=== PATIENT | male | born 1985 | race Caucasian/White ===

== ENCOUNTER 2025-01-08 19:36 | Emergency (ER) | payer SELFPAY ==
[2025-01-08 19:37] VITALS: BP 183/112; PULSE 88; RESP 20; O2SAT 98
[2025-01-08 19:38] VITALS: BP 192/110; PULSE 98; RESP 20; TEMP 36.6; O2SAT 98; BMI 39.7
--- NOTE | 2025-01-08 21:31 | EX.ED.DYSGE1 ---
HPI History of Present Illness Chief Complaint: Dizziness [facility] Medical History (Updated 01/08/25 @ 22:59 by Alexa Harvey) Diabetes mellitus, type II Home Medications ?Medication ?Instructions ?Recorded ?Last Taken ?Type amlodipine 5 mg tablet (Norvasc) 5 mg PO DAILY #30 tabs 01/08/25 Unknown Rx Allergy/AdvReac Type Severity Reaction Status Date / Time amoxicillin Allergy Hives Verified 01/08/25 19:37 Social History Smoking Status: Former smoker EXAM Physical Exam Const Vital Signs: 01/08/25 19:37 01/08/25 19:38 01/08/25 22:04 Temperature 97.9 F Temperature Source Temporal Pulse Rate 88 98 78 Respiratory Rate 20 H 20 H 14 Blood Pressure 183/112 H 192/110 H 175/111 H Blood Pressure Mean 135 137 132 Pulse Ox 98 98 Oxygen Delivery Method Room Air Room Air 01/08/25 22:58 Temperature Temperature Source Pulse Rate 71 Respiratory Rate 12 Blood Pressure 148/98 H Blood Pressure Mean 114 Pulse Ox 98 Oxygen Delivery Method Room Air MDM MDM MDM Narrative Medical decision making narrative: HISTORY OF PRESENT ILLNESS: Chief complaint: Dizziness 39-year-old male presents with concern for intermittent dizziness and chest tightness. States he quit smoking cold turkey 4 days ago. He further states he has been dealing with high blood pressure for several days. Notes has not been prescribed blood pressure medication. He is prescribed anxiety medicine because he thought his high blood pressure related to anxiety. He notes intermittent dizziness and chest tightness. Denies symptoms currently. No shortness of breath. No leg swelling. No bleeding diathesis no vomiting or diarrhea no history of heart attacks. The patient denies recent surgery in the last 4 weeks or immobilization in the last 3 days, denies previous diagnosis of DVT or PE, hemoptysis, unilateral leg swelling or malignancy with treatment the last 6 months or palliative. No estrogen use noted. Patient denies sudden onset of pain, no tearing sensation, no migratory symptoms, no new numbness, weakness or loss of sensation. Patient denies family history or personal history of Connective tissue disorders (Marfan's Syndrome, Aretha Danlos etc) REVIEW OF SYSTEMS: Pertinent positives: Dizziness, chest tightness Pertinent negatives: As per HPI PHYSICAL EXAM: Nursing triage notes reviewed, Vital signs reviewed Constitutional: please see mdm HENT: MMM Eyes: Pupils equal round and reactive to light, Extraocular muscles intact Neck: No stridor, no JVD, full neck ROM Lungs: Clear to auscultation, No wheezing or rales. No increased work of breathing, no conversational dyspnea, no accessory muscle use, no nasal flaring. No respiratory distress noted Heart: Regular rate and rhythm, No murmurs, No rubs and No gallops, 2+ distal pulses (radial, femoral, posterior tibial) in all extremities Abdomen: Soft, there is no tenderness, rigidity, rebound or guarding, no obvious peritoneal signs, no palpable pulsatile abdominal masses, no auscultated abdominal bruit : No CVAT Extremities: No edema Neuro: No new focal neurological deficits, cranial nerves II through XII intact, 5/5 strength in all present extremities. Intact sensation to light touch in all present extremities, 2+ reflexes bilateral patella tendons. Skin: No rash or lesions noted MEDICAL DECISION MAKING: Chief Complaint: please see HPI External records reviewed: Reviewed prior imaging study Factors affecting care: Elevated blood pressure readings, history of appendectomy Social determinants of health: Former smoker History obtained from others: loved once Consults: none MDM Narrative: Patient was initially hypertensive with blood pressure 190/110, he is otherwise afebrile and nontoxic-appearing. Exam without focal neurologic deficits. I considered the following differential diagnosis: PE, aortic dissection ICH, anemia, arrhythmia, ACS, I obtained a broad lab and imaging workup to further elucidate the etiology the patient's complaints. Specifically ruling out endorgan damage Initially give the patient IV labetalol given diastolic blood pressure greater than 110 ALL IMAGES (IF OBTAINED) HAVE BEEN PERSONALLY REVIEWED AND INTERPRETED BY MYSELF. CT scan of the brain shows no evidence of ICH I have personally reviewed the patient's chest x-ray. Chest x-ray is unremarkable for pulmonary edema, pneumothorax, pneumonia or focal cardiopulmonary abnormality. High-sensitivity troponin is negative, no evidence of myocardial ischemia CBC with leukocytosis suggestive of systemic range, no anemia thrombocytopenia CMP without evidence of acute kidney injury, significant electrolyte abnormality, anion gap to suggest end organ hypo-perfusion, no evidence of metabolic acidosis with a normal bicarbonate, no evidence of hepatobiliary obstructive pathology. Repeat blood pressure 148/98 after labetalol. The synthesis of the patient's history, physical exam, labs and suggest poorly controlled hypertension. We will start the patient on Norvasc 5 mg daily and have involved his primary care physician for further outpatient blood pressure medication titration. The patient and/or family, caregivers express understanding. The patient and/or family, caregivers agrees with the plan. Shared decision making: I will have a discussion with the patient and or visitors regarding risk/benefits of further testing or admission. They will be made aware of of the risk/benefits inherent in this decision they will be given the opportunity to voice understanding. Total critical care time today provided was at least 0 minutes. This excludes separately billable procedures. Critical care time (if documented) is secondary to the patient having high probability of clinically significant/life threatening deterioration in the patient's condition which required my urgent intervention. Impression: 1. Hypertension 2. Dizziness 3. History of diabetes Dispo: Discharge home This note was generated with [employer] dictation software. It may contain incorrect words, spelling, and punctuation that were not noted in review of the chart prior to signing. Lab Data Labs: Laboratory Results - last 24 hr 01/08/25 22:10 WBC 13.5 H RBC 5.45 Hgb 17.4 H Hct 49.4 MCV 90.6 MCH 31.9 MCHC 35.2 RDW Std Deviation 41.7 RDW Coeff of Leonel 12.7 Plt Count 233 MPV 10.0 Immature Gran % (Auto) 0.200 Neut % (Auto) 44.8 L Lymph % (Auto) 45.2 H [place] % (Auto) 8.4 Eos % (Auto) 1.0 Baso % (Auto) 0.4 Absolute Neuts (auto) 6.1 Absolute Lymphs (auto) 6.12 H Nucleated RBC % 0 Differential Comment SCANNED Atypical Lymphocytes 1+ Reactive Lymphocytes 2+ Sodium 140 Potassium 4.1 Chloride 106 Carbon Dioxide 21.3 Anion Gap 12 BUN 14 Creatinine 0.80 Estim Creat Clear Calc 174.86 Est GFR (MDRD) Non-Af 115 BUN/Creatinine Ratio 17.5 Glucose 124 H Calcium 9.6 Total Bilirubin 0.34 AST 33 ALT 70 H Alkaline Phosphatase 95 Troponin T High Sens 8 Total Protein 7.1 Albumin 4.4 Globulin 2.7 Albumin/Globulin Ratio 1.6 Radiography Diagnostic Testing: Clinical Impression(s) from Imaging Studies Brain CT 01/08/25 21:50 IMPRESSION: No acute intracranial abnormality. Reading Location: [facility] Chest X-Ray 01/08/25 22:13 IMPRESSION: No Acute Findings. Reading Location: [facility] Discharge Plan Triage Chief Complaint: Dizziness ED Provider: Kee Mcmullen Dx/Rx/DC Orders Instructions: ED Dizziness, Uncertain Cause, ED Hypertension New Begin Treatment Prescriptions: New amlodipine [Norvasc] 5 mg tablet 5 mg PO DAILY Qty: 30 0RF Primary Care Provider: Care Physician,No Primary Referrals: Jose Marin MD [Med Staff - Active Staff] - Activity Restrictions/Additional Instructions: Thank you for trusting us with your care today! Please start taking Norvasc as prescribed. Please take Tylenol (2 pills, 650 mg), ibuprofen (2 pills, 400 mg) every 6 hours as needed for pain and fever control. Please return to the emergency department if your symptoms change or worsen. Please follow with your primary care physician for further outpatient evaluation and management. Print Language: Sami Disposition Disposition: Home, Self Care
--- NOTE | 2025-01-08 21:50 | CT_ITS ---
PROCEDURE: BRAIN/HEAD WITHOUT CONTRAST 01/08/2025 REASON FOR EXAM: HTN, DIZZINESS R/O ICH TECHNIQUE: Head CT without intravenous contrast. Coronal and Sagittal reconstruction series were provided. One or more dose reduction techniques were used (e.g., Automated exposure control, adjustment of the mA and/or kV according to patient size, use of iterative reconstruction technique. COMPARISON: None FINDINGS: * ACUTE: No acute infarct or hemorrhage. No mass effect or herniation. * BRAIN PARENCHYMA: Signal intensities are within normal limits for age. * VENTRICLES/EXTRA-AXIAL SPACES: No hydrocephalus or extra-axial fluid collections. * EXTRACRANIAL STRUCTURES: Visualized osseous structures are normal. Soft tissues are normal. CT/Brain/Head without Contrast IMPRESSION: No acute intracranial abnormality. [facility]
--- NOTE | 2025-01-08 21:51 | EKG12_ITS ---
Test Reason : PALPITATIONS Blood Pressure : */* mmHG Vent. Rate : 86 BPM Atrial Rate : 86 BPM P-R Int : 144 ms QRS Dur : 96 ms QT Int : 348 ms P-R-T Axes : 47 52 61 degrees QTcB Int : 416 ms Sinus rhythm with marked sinus arrhythmia Otherwise normal ECG Confirmed by SULAIMAN SHAFFER, MARY ([id number]), loan expeditor JEIMY SANCHEZ ([id number]) on 01/09/2025 8:08:16 AM Referred By: DANK Confirmed By: MARY HILARIO MD
[2025-01-08 22:04] VITALS: BP 175/111; PULSE 78; RESP 14
--- NOTE | 2025-01-08 22:13 | RAD_ITS ---
PROCEDURE: CHEST 1 VIEW (PORTABLE) 01/08/2025 REASON FOR EXAM: CHEST TIGHTNESS TECHNIQUE: Frontal view of the chest. COMPARISON: None FINDINGS: Hardware: None Heart: Cardiac and mediastinal contours are stable. Lungs: No focal consolidation. No pneumothorax. No pleural effusion. Bones: Jejunum Other: RAD/Chest 1 View (Portable) IMPRESSION: No Acute Findings. Reading Location: [facility]
[2025-01-08 22:16] LABS: Absolute Lymphocyte Count 6.12 X10^3/uL (0.83-4.51); Absolute Neutrophil Count 6.1 X10^3/uL (2.0-7.7); Basophil# 0.06 X10^3/uL; Basophil% 0.4 % (0-1); Eosinophil# 0.13 X10^3/uL; Hematocrit 49.4 % (40-54); Hemoglobin 17.4 g/dL (13.0-16.5); Lymphocyte # 6.12 X10^3/ul (0.83-4.51); Lymphocyte % 45.2 % (19-41); Mean Corp Hgb Conc 35.2 g/dL (32-36); Mean Corpuscular Hgb 31.9 pg (27.0-32.0); Mean Corpuscular Volume 90.6 fL (80-94); Monocyte# 1.14 X10^3/uL; Monocyte% 8.4 % (0-10); NRBC Flagged by Analyzer 0 % (0-5); Neutrophil # 6.05 X10^3/uL (2.7-7.7); Neutrophil % 44.8 % (47-70); POSITIVE DIFFERENTIAL YES; POSITIVE MORPHOLOGY YES; Platelet Count 233 K/mm3 (150-450); RBC Distribution Width CV 12.7 % (11.6-14.6); RBC Distribution Width SD 41.7 fl (35.1-43.9); Red Blood Count 5.45 M/mm3 (4.6-6.2); White Blood Count 13.5 K/mm3 (4.4-11.0)
[2025-01-08 22:21] LABS: Differential Indicated SCAN CRITERIA MET
[2025-01-08 22:41] LABS: Troponin T High Sensitivity 8 ng/L (<=22)
[2025-01-08 22:42] LABS: Atypical Lymphocyte 1+ %; Differential Comment SCANNED; Reactive Lymphocyte 2+
[2025-01-08 22:44] LABS: ALB/GLOB Ratio 1.6 RATIO (0.9-2.4); AST(SGOT) 33 U/L (<=37); Alanine Aminotransfer ALT/SGPT 70 U/L (<=46); Albumin, Serum 4.4 g/dL (3.5-5.0); Alkaline Phosphatase 95 U/L (40-129); Anion Gap 12 (5-15); BUN 14 mg/dL (4-19); BUN/Creat Ratio 17.5 RATIO (10-20); Calcium,Total 9.6 mg/dL (7.6-11.0); Carbon Dioxide 21.3 mmol/L (21.0-32.0); Chloride 106 mmol/L (98-108); EST Glomerular Filtration Rate 115 (>60); Estimated Creatinine Clearance 174.86 ml/min (50-250); Globulin 2.7 g/dL (2.2-4.2); Glucose 124 mg/dL (70-99); Potassium 4.1 mmol/L (3.3-5.1); Protein, Total 7.1 g/dL (5.9-8.4); Sodium Level 140 mmol/L (133-145); Total Bilirubin 0.34 mg/dL (0.00-1.30)
[2025-01-08 22:58] VITALS: BP 148/98; PULSE 71; RESP 12; O2SAT 98
[2025-01-08 23:38] VITALS: BP 155/71; PULSE 74; RESP 16; TEMP 36.9; O2SAT 99
== END 2025-01-08 23:38 | disposition home or self-care (01) ==
PROVIDERS: Emergency Provider Emergency Medicine; Visit Provider Emergency Medicine
DX: I10 Essential (primary) hypertension (principal); E11.9 Type 2 diabetes mellitus without complications; R42 Dizziness and giddiness; Z87.891 Personal history of nicotine dependence
CPT/HCPCS: 70450; 71045; 80053; 84484; 85025; 93005; 96374; 99284; A4216

== ENCOUNTER 2025-01-09 12:07 | Emergency (ER) | payer SELFPAY ==
[2025-01-09 12:08] VITALS: BP 168/98; PULSE 74; RESP 14; TEMP 36.6; O2SAT 98; BMI 39.2
--- NOTE | 2025-01-09 12:18 | EDS_ITS ---
HPI HPI - GI History of Present Illness Chief Complaint: Nausea/Vomiting Informant: patient Abdominal Pain/Flank Pain Onset: Days (5) Context: Sudden Onset Timing: Intermittent Quality: Dull and Stabbing Location: RUQ Worsened by: - (Laying flat) Relieved by: Nothing Nausea/Vomiting/Emesis GI Symptom: Positive for Nausea; Negative for Vomiting Diarrhea/Melena/Hematochezia GI Symptom: Positive for Diarrhea; Negative for Melena or Hematochezia Associated Symptoms Associated Symptoms: Negative for Dysuria, Frequency or Hematuria Narrative Narrative: Patient presents with abdominal pain that has been getting worse over the past 5 days. Patient states it is intermittent. Patient describes it as dull stabbing pain. Patient states it is mainly over the right mid abdomen. Patient states he has been diagnosed with an abdominal cyst. Patient states he has never had it evaluated. Patient states his pain is worse when he lays flat. Patient states he gets nauseated when he lays flat. Patient denies any vomiting. Patient admits to some diarrhea but denies any melena or hematochezia. Patient denies any dysuria, frequency, or hematuria. Patient denies any radiation of the pain to his back. [facility] Medical History (Updated 01/09/25 @ 14:[address] Daniel Haider, DO) Diabetes mellitus, type II Home Medications ?Medication ?Instructions ?Recorded ?Last Taken ?Type amlodipine 5 mg tablet (Norvasc) 5 mg PO DAILY #30 tab s 01/08/25 Unknown Rx Allergy/AdvReac Type Severity Reaction Status Date / Time amoxicillin Allergy Hives Verified 01/09/25 12:09 Surgical History Hx of appendectomy Social History Smoking Status: Current every day smoker tobacco type: cigarettes ROS ROS ED Constitutional Constitutional ED: Reports chills and subjective; Denies fever(s) Eyes Eyes: Denies blurry vision or change in vision ENT ENT ED: Denies rhinorrhea or sore throat Cardiovascular Cardiovascular: Denies chest pain or palpitations Respiratory/Chest Respiratory/Chest: Denies cough or dyspnea Gastrointestinal Gastrointestinal: Reports abdominal pain, diarrhea and nausea; Denies melena or vomiting Genitourinary Genitourinary ED: Denies dysuria or hematuria Musculoskeletal Musculoskeletal: Denies back pain or neck pain Integumentary Denies abscess or rash Neurologic Neurologic: Denies headache(s) or weakness Allergic/Immunologic Allergic/Immunologic ED: Denies mouth swelling or urticaria EXAM Physical Exam Const Vital Signs: 01/09/25 12:08 01/09/25 14:08 Temperature 98 F Temperature Source Temporal Pulse Rate 74 71 Respiratory Rate 14 16 Blood Pressure 168/98 H 164/94 H Blood Pressure Mean 121 117 Pulse Ox 98 97 Oxygen Delivery Method Room Air Positive well nourished and well developed Constitutional Narrative: BMI is 39.2 General Appearance ED: well developed and NAD HEENT Reports moist mucous membranes Neck supple and no JVD Resp normal respiratory effort and clear to auscultation bilaterally Cardio regular rate and regular rhythm GI GI Narrative: There is a tender soft tissue mass in the right upper abdomen. There is no rebound or guarding noted. I do not feel a fascial defect where this could be a hernia. There is no rebound or guarding noted. Palpation: soft and tender RUQ; Negative for guarding or rebound tenderness present Neuro CN's II-XII intact bilaterally, moves all extremities and no sensory deficits noted Motor Exam: strength 5/5 throughout Psych mental status grossly normal and thought process normal MDM MDM MDM Narrative Medical decision making narrative: Differential diagnosis includes abdominal mass, incarcerated hernia, cholecystitis, cholelithiasis, gastroenteritis, and abdominal wall strain. CBC will be obtained to assess for leukocytosis and anemia. Comprehensive metabolic profile will be obtained to assess for electrolyte abnormality, hepatic function, and renal function. CT scan of the abdomen and pelvis will be obtained to assess for incarcerated hernia and abdominal mass. Lab Data Attestation: I reviewed the patient's lab results. Lab results narrative: CBC was reviewed. There is a slight leukocytosis of 11.2. Hemoglobin was slightly elevated at 17.7. The remainder is within normal limits. Comprehensive metabolic profile was reviewed and was essentially within normal limits. Labs: Laboratory Results - last 24 hr 01/09/25 12:40 WBC 11.2 H RBC 5.58 Hgb 17.7 H Hct 50.4 MCV 90.3 MCH 31.7 MCHC 35.1 RDW Std Deviation 41.9 RDW Coeff of Leonel 12.7 Plt Count 254 MPV 10.1 Immature Gran % (Auto) 0.400 Neut % (Auto) 58.7 Lymph % (Auto) 32.3 [place] % (Auto) 7.8 Eos % (Auto) 0.4 Baso % (Auto) 0.4 Absolute Neuts (auto) 6.6 Absolute Lymphs (auto) 3.60 Nucleated RBC % 0 Sodium 139 Potassium 4.0 Chloride 105 Carbon Dioxide 19.4 L Anion Gap 15 BUN 8 Creatinine 0.68 L Estim Creat Clear Calc 204.15 Est GFR (MDRD) Non-Af 121 BUN/Creatinine Ratio 11.2 Glucose 125 H Calcium 9.7 Total Bilirubin 0.61 AST 36 ALT 76 H Alkaline Phosphatase 94 Total Protein 7.5 Albumin 4.4 Globulin 3.0 Albumin/Globulin Ratio 1.5 Radiography Diagnostic Testing: Clinical Impression(s) from Imaging Studies Abdomen/Pelvis CT 01/09/25 13:27 IMPRESSION: 1. No acute noncontrast findings. 2. Additional description as above. Reading Location: [facility] CT scan of the abdomen and pelvis was obtained. There is a moderate to large fat-containing midline ventral hernia. There is a small fat-containing umbilical hernia. There is no acute abnormality noted. This was interpreted by the radiologist and was also independently reviewed by myself. Treatment and Re-Evaluation :: Patient was advised of his findings. Patient was instructed to follow-up with his primary care physician in 5 to 7 days. Patient was also given referral for general surgery. Patient was instructed to return if worse in any way. Patient understood and was agreeable with the plan. All questions were answered. Discharge Plan Triage Chief Complaint: Nausea/Vomiting ED Provider: Daniel Haider Dx/Rx/DC Orders Clinical Impression: Ventral hernia, Hernia, umbilical Instructions: ED Hernia (Adult) Prescriptions: No Action amlodipine [Norvasc] 5 mg tablet 5 mg PO DAILY Qty: 30 0RF Primary Care Provider: Care Physician,No Primary Referrals: Romel Theodore MD [Med Staff - Active Staff] - 5-7 Days Care Physician,No Primary [Primary Care Provider] - Claribel Suarez PRODUCTION SUPERVISORBernardC [[facility]] - 5-7 Days Print Language: Uzbek Disposition Disposition: Home, Self Care
[2025-01-09 13:02] LABS: Absolute Neutrophil Count 6.6 X10^3/uL (2.0-7.7); Basophil# 0.05 X10^3/uL; Basophil% 0.4 % (0-1); Eosinophil# 0.05 X10^3/uL; Eosinophils% 0.4 % (0-5); Hematocrit 50.4 % (40-54); Hemoglobin 17.7 g/dL (13.0-16.5); Lymphocyte % 32.3 % (19-41); Mean Corp Hgb Conc 35.1 g/dL (32-36); Mean Corpuscular Hgb 31.7 pg (27.0-32.0); Mean Corpuscular Volume 90.3 fL (80-94); Mean Platelet Vol. 10.1 fl (6.2-12.0); Monocyte# 0.87 X10^3/uL; Monocyte% 7.8 % (0-10); NRBC Flagged by Analyzer 0 % (0-5); Neutrophil # 6.55 X10^3/uL (2.7-7.7); Neutrophil % 58.7 % (47-70); Platelet Count 254 K/mm3 (150-450); RBC Distribution Width CV 12.7 % (11.6-14.6); RBC Distribution Width SD 41.9 fl (35.1-43.9); Red Blood Count 5.58 M/mm3 (4.6-6.2); White Blood Count 11.2 K/mm3 (4.4-11.0)
[2025-01-09 13:21] LABS: ALB/GLOB Ratio 1.5 RATIO (0.9-2.4); AST(SGOT) 36 U/L (<=37); Alanine Aminotransfer ALT/SGPT 76 U/L (<=46); Albumin, Serum 4.4 g/dL (3.5-5.0); Alkaline Phosphatase 94 U/L (40-129); Anion Gap 15 (5-15); BUN 8 mg/dL (4-19); BUN/Creat Ratio 11.2 RATIO (10-20); Calcium,Total 9.7 mg/dL (7.6-11.0); Carbon Dioxide 19.4 mmol/L (21.0-32.0); Chloride 105 mmol/L (98-108); Creatinine, Serum 0.68 mg/dL (0.70-1.20); EST Glomerular Filtration Rate 121 (>60); Estimated Creatinine Clearance 204.15 ml/min (50-250); Glucose 125 mg/dL (70-99); Protein, Total 7.5 g/dL (5.9-8.4); Sodium Level 139 mmol/L (133-145); Total Bilirubin 0.61 mg/dL (0.00-1.30)
--- NOTE | 2025-01-09 13:27 | CT_ITS ---
PROCEDURE: ABDOMEN/PELVIS WITHOUT CONT 01/09/2025 REASON FOR EXAM: ABDOMINAL PAIN TECHNIQUE: Abdomen and pelvis CT without intravenous contrast. Noncontrast technique limits evaluation of the abdominal and pelvic viscera. Coronal and Sagittal reconstruction series were provided. One or more dose reduction techniques were used (e.g., Automated exposure control, adjustment of the mA and/or kV according to patient size, use of iterative reconstruction technique). PATIENT PREPARATION: Per protocol ORAL CONTRAST TYPE: None. AMOUNT: mL RADIATION DOSE SUMMARY: CTDlvol: 23.30+ 20.75 mGy DLP: 1466.75 mGycm One or more dose reduction techniques were used (e.g., Automated exposure control, adjustment of the mA and/or kV according to patient size, use of iterative reconstruction technique). COMPARISON: None FINDINGS: Note that evaluation of the abdominopelvic viscera, vasculature, and remaining soft tissues is limited in the absence of IV contrast. Lung bases: Minimal atelectasis/scarring.. Liver: Unremarkable. Spleen: Top-normal size of the spleen, 12.9 cm coronal.. Gallbladder: Question faint high-density layering sludge or noncalcified stones. Pancreas: Unremarkable. Adrenals: Unremarkable. Kidneys: Unremarkable. Bowel: Unremarkable. Reported appendectomy. Lymph nodes: Unremarkable. Vasculature: Unremarkable. Peritoneum: Unremarkable. Bladder: Underdistended and suboptimally evaluated, grossly unremarkable. Reproductive Organs: Unremarkable. Body Wall: Moderate to large fat containing midline supraumbilical presumably incisional hernia. Small fat containing umbilical hernia. Bones: Unremarkable. CT/Abdomen/Pelvis without Cont IMPRESSION: 1. No acute noncontrast findings. 2. Additional description as above. Reading Location: [id number]
[2025-01-09 14:08] VITALS: BP 164/94; PULSE 71; RESP 16; O2SAT 97
[2025-01-09 14:51] VITALS: BP 159/99; PULSE 81; RESP 14; TEMP 36.6; O2SAT 99
== END 2025-01-09 14:55 | disposition home or self-care (01) ==
PROVIDERS: Emergency Provider Emergency Medicine; Visit Provider Emergency Medicine
DX: K43.9 Ventral hernia without obstruction or gangrene (principal); E11.9 Type 2 diabetes mellitus without complications; K42.9 Umbilical hernia without obstruction or gangrene
CPT/HCPCS: 74176; 80053; 85025; 99283

== ENCOUNTER 2025-01-15 08:57 | Outpatient (CLI) | payer SELFPAY ==
[2025-01-15 10:51] LABS: Hemoglobin A1c 5.9 % (<=5.6)
== END 2025-01-15 23:59 | disposition home or self-care (01) ==
PROVIDERS: Referring Provider Surgery; Visit Provider Surgery
DX: E11.9 Type 2 diabetes mellitus without complications (principal); K42.9 Umbilical hernia without obstruction or gangrene
CPT/HCPCS: 36415; 83036; 87081

== ENCOUNTER 2025-03-05 09:47 | Day surgery (SDC) | payer MEDICAID, SELFPAY ==
--- NOTE | 2025-02-22 11:04 | EKG12_ITS ---
Test Reason : PREOP Blood Pressure : */* mmHG Vent. Rate : 82 BPM Atrial Rate : 82 BPM P-R Int : 118 ms QRS Dur : 90 ms QT Int : 358 ms P-R-T Axes : 10 60 34 degrees QTcB Int : 418 ms Normal sinus rhythm with sinus arrhythmia Normal ECG Confirmed by ROSALBA SHAFFER, BRENNAN ([id number]), development editor JEIMY SANCHEZ ([id number]) on 02/27/2025 6:48:51 AM Referred By: Romel Theodore Confirmed By: BRENNAN NAVARRETE MD
[2025-03-05] VITALS (10 sets, daily range): BP systolic 138–187; BP diastolic 90–108; PULSE 76–106; RESP 14–18; TEMP 36.1–36.8; O2SAT 92–100; BMI 35.9
[2025-03-05] MEDS: Lactated Ringers 1,000 ML 15 ML IV (10:38)
--- NOTE | 2025-03-05 11:03 | PCM.PRE.AN2 ---
ASA Classification* ASA Classification ASA Classification: 2 (HTN, T2DM) Assessment & Plan Anesthesia* Anesthesia Assessment Anesthesia Assessment: Discussed sedation and/or anesthesia options, risks, benefits, and alternatives with patient/parents/legal guardian/POA. Questions invited. The patient/parents/legal guardian/POA seems to understand and agrees to proceed with anesthesia plan. Reviewed the physical assessment, medical history, allergy history and patient home medications list prior to surgery/procedure/anesthetic and documented any changes. Performed airway and anesthesia risk assessments. Anesthesia Type Anesthesia Type: General History Source History Obtained from:: Patient and Chart Anesthesia Focused Assessment* Temperature: 98.3 F Pulse Rate: 103 Blood Pressure: 138/93 Respiratory Rate: 18 Pulse Ox: 99 Oxygen Delivery Method: Room Air Airway Assessment Mouth opens: >3 cm Mallampati Score: III Teeth Condition: Intact and Missing (many missing on bottom ) Neck Range of motion (ROM): Full ROM Focused Labs Anesthesia Preop lab: CBC WBC 11.2 K/mm3 (4.4-11.0) H 01/09/25 12:40 01/09/25 RBC 5.58 M/mm3 (4.6-6.2) 01/09/25 12:40 01/09/25 Hgb 17.7 g/dL (13.0-16.5) H 01/09/25 12:40 01/09/25 Hct 50.4 % (40-54) 01/09/25 12:40 01/09/25 Plt Count 254 K/mm3 (150-450) 01/09/25 12:40 01/09/25 CHEMISTRY Potassium 4.0 mmol/L (3.3-5.1) 01/09/25 12:40 01/09/25 Sodium 139 mmol/L (133-145) 01/09/25 12:40 01/09/25 BUN 8 mg/dL (4-19) 01/09/25 12:40 01/09/25 Creatinine 0.68 mg/dL (0.70-1.20) L 01/09/25 12:40 01/09/25 Glucose 125 mg/dL (70-99) H 01/09/25 12:40 01/09/25 COAG Pre-Assessment Diagnosis/Proposed Procedure Planned Operative Procedure(s): LAP ROBOTIC VENTRAL HERNIA Anesthesia History Anesthesia History - processing technologist: Anesthesia History - processing technologist Hx Hospitalization No 02/19/25 15:10 Any Problems With Anesthesia No 02/19/25 15:10 Cholinesterase deficiency No 02/19/25 15:10 You/Your Family Experience No 02/19/25 15:10 fever (hyperthermia) with Relationship Recent Exposure to Contagious No 03/05/25 10:13 Disease Does patient have nerve No 02/19/25 15:10 stimulator Patient instructed to have device shut off --Does patient have Pacemaker No 03/05/25 10:13 or ICD? When Was Last Pacemaker Check QUESTION #4 FULL TEXT: You/Your Family Experience fever (hyperthermia) with Anesthesia Last Oral Intake Last Oral intake: Last Oral Intake NPO since 00:00 03/05/25 10:13 Meds taken in AM with sips of No 03/05/25 10:13 water? Meds patient instructed to take am of surgery PONV PONV - processing technologist: PONV - processing technologist Female No 02/19/25 15:10 HX of Motion Sickness No 02/19/25 15:10 HX of N/V After Surgery No 02/19/25 15:10 Non-Smoker Yes 02/19/25 15:10 Duration of Surgery greater Yes 02/19/25 15:10 than 60 minutes Number of Risk Factors 2 02/19/25 15:10 PONV Score Moderate Risk 02/19/25 15:10 Height & Weight Height & Weight: Anesthesia: Height & Weight Height 5 ft 11 in 03/05/25 10:13 Weight: 117 kg 03/05/25 10:13 Body Mass Index (BMI) 35.9 03/05/25 10:13 Respiratory Assessment Respiratory Assessment - processing technologist: Respiratory Tract Infection Hx - processing technologist Hx Respiratory Tract Infection No 02/19/25 15:10 STOP Sleep Apnea STOP Sleep Apnea - processing technologist: STOP Sleep Apnea - processing technologist Hx Hypertension Yes: CONTROLLED WITH MED 02/19/25 15:10 Hx Sleep Apnea No 02/19/25 15:10 CPAP BIPAP Do you snore loudly (louder No 02/19/25 15:10 than talking or can be heard Do you often feel tired/ No 02/19/25 15:10 fatigued/ sleepy during daytime? Has anyone observed you stop No 02/19/25 15:10 breathing during sleep? STOP Results Negative 02/19/25 15:10 QUESTION #5 FULL TEXT : Do you snore loudly (louder than talking or can be heard through closed doors)? Tobacco Use History Tobacco Use History - processing technologist: Tobacco Use History - processing technologist Tobacco Use Smoking Status Former smoker 02/19/25 15:10 Hx Tobacco Use Yes 02/19/25 15:10 Years Smoking Packs Smoked per Day Smoking Cessation Date was Yes - quit smoking within 15 02/19/25 15:10 within the last 15 years years Hx Smoking Cessation Date 12/02/24 02/19/25 15:10 Hx Smoking Cessation Counseling Hematologic Medial History Hematologic Hx - processing technologist: Hematologic Medical Hx - fisher diving Hx of Blood Transfusion No 02/19/25 15:10 Hx of Transfusion in last 3 No 02/19/25 15:10 Months Date of Last Transfusion (if within last 3 months) Ever experience any problems No 02/19/25 15:10 with transfusion(s)? Specify any problems Hx of Preganancy in last 3 N/A 02/19/25 15:10 Months Nurse Filling Out Transfusion DSCHRIBER 02/19/25 15:10 & Questions: Date: 02/19/25 02/19/25 15:10 Time: 15:12 02/19/25 15:10 Patient unable to answer at this time (ie. confused, unrespo /Reproduction History /Reproductive History - processing technologist: /Reproductive Hx- processing technologist Hx Now No 02/19/25 15:10 Gestational Age (in weeks): EDC: Hx Hx Para Hx Section SAB No 02/19/25 15:10 Active Medications Active Medications: Current Medications Generic Name Dose Route Start Last Admin Trade Name Freq PRN Reason Stop Dose Admin Clindamycin Phosphate 900 mg in 50 mls @ 75 mls/hr 03/05/25 11:25 Cleocin IV 03/05/25 12:04 INTRAOP ONE Lactated Ringer's 1,000 mls @ 15 mls/hr 03/05/25 10:15 03/05/25 10:38 IV 15 mls/hr .Q48H MARGIE Administration PFSH Medical History (Updated 02/19/25 @ 15:18 by Ирина Rinaldi) Wears glasses Anxiety Depression Marijuana use Alcohol use Blood disorder Migraine headache Syncope Shortness of breath on exertion Former smoker History of edema HTN (hypertension) Diabetes mellitus, type II Home Medications ?Medication ?Instructions ?Recorded ?Last Taken ?Type losartan 25 mg tablet 25 mg PO 1200 02/13/25 03/04/25 History Allergy/AdvReac Type Severity Reaction Status Date / Time amoxicillin Allergy Hives Verified 03/05/25 10:11 Family History Father Colon cancer Diabetes Hypertension Mother Diabetes Hypertension Surgical History (Updated 02/19/25 @ 15:18 by Ирина Rinaldi) Hx of appendectomy Social History Smoking Status: Former smoker Review of Systems (Anesthesia) ROS Narrative System reviewed and no additional complaints, except as documented.
[2025-03-05 11:14] LABS: Bedside Glucose 159 mg/dL (74-106)
--- NOTE | 2025-03-05 11:25 | OM_PTH ---
PATIENT: MIRANDA LEONE III LOC: [facility] [place] U#:[id number] AGE/SX: 40/M ROOM: RE03/05/[address]: Dr. Romel Theodore MD : 1985 BED: DIS: 03/05/2025 SPEC #: [id number] RECD: 03/06/25 07:35 STATUS: FREDA BENJI #: [id number] ASH: 03/05/25 11:[address]: Romel Theodore DEPT: SURGICAL PATHOLOGY RECD BY: Frederic Broderick Tissues: A - Omentum, NOS Procedures: Surgery Specimen Level IV HEADER OPERATION: Laparoscopic robotic ventral and umbilical hernia repair with mesh PRE-OP DIAGNOSIS: Ventral hernia, ventral and umbilical hernia TISSUE SUBMITTED: A- Omentum MICROSCOPIC DIAGNOSIS A. Omentum, ventral and umbilical hernia repair: Benign adipose with focal acute hemorrhage. MICROSCOPIC DESCRIPTION Slides are reviewed. GROSS DESCRIPTION A. Received in formalin in a container labeled with the patient's name, date of , and omentum is an 11.3 x 3.9 x 1.4 cm fragment of clancy-yellow, finely lobulated fatty tissue. Serial sections reveal a 1.5 x 1.4 x 0.5 cm area of red-brown hemorrhage at the periphery. The remaining surfaces are clancy-yellow, homogenous, with thin vasculature. No nodules or necrosis is identified. Market Research Specialist sections are submitted in A1-2. [facility] 03-06-2025 CPT:63976
--- NOTE | 2025-03-05 11:55 | HP.PCM_ITS ---
History and Physical Date of Admission: 03/05/25 Date of Service: 02/13/25 MR#: [id number] Acct: [id number] Name: MIRANDA LEONE III Rep #: [id number] : 1985 Provider: Dr. Romel Theodore MD Age/Sex: 40/M Location: [facility] Status: Signed Intake Vital Signs 01/16/2508:03 02/13/2513:52 Height 6 ft 6 ft Weight: 288 lb 274 lb BMI 39.0 37.1 BP 174/114 H 154/89 H Blood Pressure Location Rt brachial Rt brachial Position Sitting Sitting Respiration 18 17 Pulse 89 93 Pulse Source Monitor Monitor Temp 97 F L 98.2 F Temp Source Temporal Temporal Pulse Oximetry (%) 96 97 Oxygen Delivery Method room air room air Intake Visit Reasons: DISCUSS HERNIA Chief Complaint: discuss hernia Accompanied by: Is patient in pain?: No Allergies amoxicillin Allergy (Verified 02/13/25 13:52) Hives Medications ?Medication ?Instructions ?Recorded ?Confirmed ?Type losartan 25 mg tablet 25 mg PO QDAY 02/13/25 02/13/25 History PFSH Medical History HTN (hypertension) Diabetes mellitus, type II Surgical History Hx of appendectomy Family History Father Colon cancer Diabetes HypertensionMother Diabetes Hypertension Social History Smoking Status: Former smoker HPI HPI HPI: Patient is a 39-year-old male who makes follow-up visit for evaluation of a ventral hernia. His last visit was 01/16/2025. He once again presents with his . Following our visit in January he obtained A1c testing that showed an A1c of 5.9 and the MRSA screen was negative. He goes on to relate that he has totally changed his diet and cut out all red meat and is now eating fish and chicken. He confirms this is translated to a weight loss but he is uncertain how much. He adds that he has established with a primary care provider and has kept a log of his blood pressures. As I review this record that shows his blood pressures have been maintained in a systolic range of 120-140 and a diastolic range of 60 to 80 mmHg. He also confirms that he has remained abstinent of tobacco use since January 03. He further adds that he has undergone cessation of smoking even marijuana. He denies any increased discomfort from his hernias. Below is recapitulated from patient's prior visit for ease of review: Patient is a 39-year old male who presents for evaluation of a ventral hernia after a recent ER visit. He confesses that his ER visit was more likely related to his withdrawal symptoms since stopping smoking approximately 11 days ago. He shares he previously smoked with a rate of over 2 packs/day. He has quit cold turkey. As far as the hernia, this finding was first noticed by patient years ago. He denies any pain from the hernia. Additionally, he notes that he first appreciated a second hernia at his umbilicus last year.. Patient is not able to recall how this occurred. Mr. Leone shares that while he was diagnosed with diabetes mellitus type 2 in 2018 he is no longer on any medication for this diagnosis after previously been on insulin and then de-escalated to metformin by Dr. Petit. He confesses to, however, that he has not had an A1c checked in years. Mr. Leone presents rather hypertensive at today's visit but insist that his blood pressures on his cuff at home are always within range and he feels that it is his anxiety for this visit that is caused his high readings. Mr. Clement also reports that he and his family are mourning the loss of his brother who just at the age of 37 from a heart attack. Beyond his brother, Mr. Lay shares that there is a lot of cardiovascular disease and diabetes in his family history on both sides. Mr. Leone reports that his weight seems to be stable presently. He denies any history of cutaneous infections. Mr. Leone is presently on disability and is not working at this time. Outside of employment considerations Mr. Ocasio does report that he lifts more than he probably should. Pertinent surgical history includes: Open appendectomy as a 7-year-old child. ROS General General: Yes fatigue; No weight change, appetite, colon cancer, breast cancer or weakness HEENT HEENT: No difficulty swallowing, eye injury, eye surgery, swollen glands or hoarseness Endo Endocrine: Yes diabetes mellitus; No thyroid disease, thyroid cancer, Hair loss, heat intolerance or cold intolerance Skin Skin: No rash or changing moles Musc Musculoskeletal: Yes back problems and arthritis; No rheumatoid arthritis, gout or joint pain Cardio Cardiovascular: Yes high blood pressure; No murmur, pacemaker, heart disease, atrial fibrillation, heart attack, heart stent, palpitations, shortness of breath with exertion or chest pain Psych Psychiatric: Yes depression and anxiety; No hearing voices Resp Respiratory: No shortness of breath, No sleep apnea, No cough, No COPD, No asthma, No emphysema and No wheezing Gastro Gastrointestinal: No abdominal pain, No nausea or vomiting, No diarrhea, No constipation, No blood in stool, No acid reflux, No hemorrhoids, No ulcers, No gallbladder problem and No black,tarry stools Keith Hematologic: No blood thinners, No blood disorders, No bleeding, No anemia and No blood clots Neuro Neurologic: No system reviewed and no additional complaints, except as documented, No as per HPI, No abnormal gait, No abnormal hearing, No abnormal movements, No abnormal speech, No behavioral changes, No burning sensations, No confusion, No convulsions, No disequilibrium, No dizziness, No localized weakness, No frequent falls, No headache(s), No lack of coordination, No loss of vision, No memory loss, Yes numbness, No other visual disturbances, No radicular pain, No restless legs, No sensory deficit, No syncope, Yes tingling, No tremor(s), No weakness and No other Exam Const General: cooperative, comfortable, no acute distress and anxious Resp Effort & Inspection: normal respiratory effort GI Other: No scars, stable epigastric hernia with large amount of fat that is at least partially incarcerated. There is mild tenderness with exam. Patient's abdomen is otherwise nondistended and nontender to palpation. Assessment and Plan Assessment and Plan (1) Ventral hernia: Status: Inactive Qualifiers: Obstruction and gangrene presence: without obstruction or gangrene Qualified Code(s): K43.9 - Ventral hernia without obstruction or gangrene Comment: Patient is a 39-year-old male who makes surgical consultation related to a known ventral hernia and is presently asymptomatic. In fact, patient actually has 2 separate hernias of his abdominal wall. There is no antecedent history of surgery in this location. Mr. Leone appears to be trying to get back on track with his own health history?potentially related to a tragic event in his family where they recently lost his younger brother after a heart attack at the age of 37. Given this event Mr. Leone is not in position to schedule surgery at this time. I believe this is reasonable to delay surgery given his asymptomatic status and the apparent fat incarceration with its protective effect over bowel entering his hernia. Took the opportunity to show patient and his pictures of the hernias on his recent CT imaging to illustrate this concept. Still I went ahead and discussed, briefly, my recommendation for a minimally invasive robotic hernia repair with mesh placement. I also addressed the need for activity restrictions postoperatively to ensure cross-linking and ingrowth of this mesh. Additionally, I discussed with patient and his that his obesity, diabetes, and smoking history all contribute negatively to his prognosis after surgery and increases risk for recurrence/infection. It is apparent to our discussions that Mr. Leone does not have any regular following with primary care. He states that he is open to referral but wishes to ideally establish closer to his home in [facility]. I suggested we get a hemoglobin A1c at today's visit and recheck his blood pressure but if issues remain on either of these 2 fronts I have requested the permission to refer him here in [place]. Mr. Leone's expressed appreciation for today's discussion and that are interested in continuing this discussion further. Therefore we will look for a return visit in approximately 1 month to potentially schedule surgery at that time. Update 02/13/2025: Patient returns for evaluation and has made some very meaningful strides in his health history in a short period of time. He has already begun weight loss and remains free of tobacco. Further, we have been able to confirm control of his blood sugars and he is established with a primary care provider. With all of these positive steps I feel much better about proceeding with elective repair of his ventral hernia and do recommend proceeding at his availability. Presently his CT imaging shows the fascial defect to be at least 3 cm in width. There is a much larger amount of hernia contents through the smaller defect but I would be concerned about the ability for bowel to enter such a defect, for possible fat strangulation, or for possible growth of the hernia defect with additional time. I reviewed the CT images from our prior visit and reiterated my plan for a robot-assisted repair with mesh placement over both defects. Patient and his are in agreement. Plan: ? Robot-assisted ventral hernia repair (and umbilical) with mesh placement. Outpatient disposition anticipated (2) Hernia, umbilical: Status: Inactive Qualifiers: Obstruction and gangrene presence: without obstruction or gangrene Qualified Code(s): K42.9 - Umbilical hernia without obstruction or gangrene Comment: Asymptomatic can small in comparison to epigastric ventral hernia detailed above. Would recommend repair of this hernia simultaneously with the larger ventral hernia and hopefully would be able to placed a single mesh backing both repairs. Plan: Plan for repair simultaneous with above ventral epigastric hernia and look for mesh overlap of defect I have examined the patient and the H&P has been reviewed. There are no clinical changes since date of exam. Patient confirms that he has remained in a stable state of health. I did discuss with him that if we are unable to fully reduce the hernia contents via a transperitoneal approach we may have to make a small open incision to remove the herniated omental contents that way. He confirms understanding. Will now proceed to the operating room for planned robot- assisted ventral hernia repair with mesh placement. Consents were confirmed.
[2025-03-05] MEDS: Clindamycin 900 MG/50 ML BAG 75 MG IV (12:20)
[2025-03-05] MEDS: Bupivacaine 0.25% 30 ML Vial 60 ML OPERA.SITE (13:00)
[2025-03-05] MEDS: 0.9% Normal Saline (Pres. free 10 ML Vial (13:00)
[2025-03-05] MEDS: BUPIVACAINE LIPOSOME/PF 20 ML VIAL OPERA.SITE (13:00)
--- NOTE | 2025-03-05 16:37 | DCINST_ITS ---
Discharge Instructions Diet Discharge Diet: No restrictions Activity Discharge Activity: May Not Drive (While taking narcotic pain medication) and May Shower May shower in (days): 2 Ice area for (Minutes): 20 Lifting Restrictions: No lifting greater than 10 pounds for the next 5 weeks Dressing / Incision Call your doctor if your incision/area has: Continuous Slow Oozing, Increased Pain/ Swelling, Increased Redness, Foul Smelling Discharge and Swelling at the incision site Call your doctor if you observe: Fever of 101 or Higher, Inability to urinate and Inability to have a bowel movement Change Dressing in: 2 days (Please leave Steri-Strips intact until they fall off spontaneously or are taken off at your follow-up visit) Remove Dressing in: 2 days Cleanse incision/area with: Soap & Water and Keep Dressing Clean & Dry Follow Up Care Please Follow Up With: Romel Theodore MD When: 1 week postop Test Results: Test results from this visit will be discussed in further detail at your follow- up appointment, if applicable. Discharge Plan Admission Primary Reason for Your Visit: Ventral hernia repair x 2 Attending Provider: Romel Theodore Primary Care Provider: YADI AGGARWAL Instructions Print Language: Croatian Discharge Orders/Prescriptions Prescriptions: New oxycodone 5 mg tablet 5 mg PO Q6H PRN (Reason: pain) 3 Days Qty: 10 0RF Continued losartan 25 mg tablet 25 mg PO 1200 Referrals / Follow Up: Care Physician,No Primary [Non-Staff] - Disposition Disposition (needs filled in before D/C Order can be placed): Home, Self Care
--- NOTE | 2025-03-05 16:39 | PCM.OPRPT ---
Operative Report (Standard) Operative Information Date of Procedure: 03/05/25 Pre-Operative Diagnosis: 1. Large epigastric hernia with chronically incarcerated omentum 2. Umbilical hernia Post-Operative Diagnosis: 1. Large epigastric hernia with chronically incarcerated omentum 2. Umbilical hernia with incarcerated fat Surgery/Procedure Performed: Robot-assisted transabdominal preperitoneal epigastric hernia repair and umbilical hernia repair with mesh education counselor: Yes Bridge Maintainer: Shoshana Nowak Tasks completed by asset protection assistant: Opening and Other (Material insertion and extraction) Additional assistant professor of communication?: Yes Additional Muck Farmer #2: Marco Hairston Tasks completed by assistant professor of communication #2: Closing and Other (Insertion and removal of material) Type of Anesthesia: General/Supplemental RN Documented Start/Stop Times: Operation Date: 03/05/25 11:25 Case Time Into Pre-Op 03/05/25 10:02 Out of Pre-Op 03/05/25 12:06 Anesthesia Start 03/05/25 12:11 Into Room 03/05/25 12:11 Procedure Start 03/05/25 12:44 Procedure End 03/05/25 16:50 Anesthesia End 03/05/25 16:52 Out of Room 03/05/25 16:52 Into Recovery 03/05/25 16:55 Into Phase II Recovery 03/05/25 17:33 Out of Recovery 03/05/25 17:33 Out of Phase II 03/05/25 19:04 Procedure Start Time: 12:44 Procedure Stop Time: 16:50 Select all DRAINS/GRAFTS/IMPLANTS that apply: Implanted device (ProGrip mesh ) Implanted device details: Lot [id number], reference [id number] (umbilical), lot [id number], reference [id number] (epigastric) Estimated Blood Loss: 20 Specimen collected: Yes Description of specimen(s) removed: Omentum Description of surgery: After appropriate identification in the preoperative holding area, the patient was brought to the operating room suite where he was positioned supine the operating table. Preoperative antibiotics were administered. Patient was then induced with a general anesthetic. Patient's abdomen was prepped and draped in the usual sterile fashion. A formal timeout followed to confirm patient and procedure. Procedure was begun with a Veress entry at [place]'s point. Once the set point pressure of 15 mmHg was reached, this Veress needle was exchanged for an optical trocar and an optical entry was made in this location. Laparoscopic investigation revealed no inadvertent injury to the viscera below. A transversus abdominis plane block was created with 80 mL mixture of Exparel, Marcaine, and injectable saline under laparoscopic vision. Two additional 8 mm robotic trocars were placed along the abdominal wall laterally taking care to avoid the bony prominences of the costal margin and the ASIS. The robot was then brought in and docked in standard fashion. Robotically a peritoneal flap was raised approximately 2 cm medial from my trocars and carried this away towards the contralateral abdominal wall. Great care was taken to lower the peritoneum off of the posterior rectus sheath and avoid any rents in the peritoneal flap. Perforating vessels were sealed with bipolar energy to maintain hemostasis as this flap dissection proceeded. As I neared the hernia sac on the larger epigastric hernia I switched to the inferior side of the peritoneal lining placing downward traction on the omental hernia contents while downward traction was simultaneously applied to the abdominal wall by my assistant professor of communication bedside. Selective electrocautery was used to divide scar attachments to the hernia contents and bleeding omental vessels were coagulated as they were encountered during this extraction. I then addressed the umbilical hernia directly by opening the scar tissue about the hernia sac and carefully applying manual traction downward until the hernia was fully reduced. Through this process I was able to remove some incarcerated fat and find the interface between patient's hernia sac and rectus sheath. The flap was then further dissected laterally until it appeared we had adequate width. I then returned to the epigastric hernia where I sought to reduce the hernia sac by applying downward traction on the hernia sac and using short bursts of cautery to disrupt the scarred in attachments. There did not appear to be any way of the hernia sac intact so it was divided adjacent to the posterior rectus sheath and again dissection was continued contralaterally in the same plane taking care to stay directly against the posterior rectus sheath. Additional cephalad dissection was performed lowering the most distal portion of the falciform ligament as I did so. Dissection was carried on until it appeared we had adequate width and then this extent of dissection was objectively confirmed with peritoneal placement of a ruler so the margins could be assessed. The epigastric hernia defect was closed with a 12 inch #1 STRATAFIX suture by running the fascial defect closed and then running the suture back upon itself. Bites of the hernia sac within the defect were taken alongside fascial bites to help take up some of the space and reduce the risk for postoperative seroma. The same process was repeated for the smaller umbilical hernia with a second #1 STRATAFIX suture. Next a 8 x 10 cm ProGrip mesh was placed on the underside of the umbilical hernia closure and was pressed in the place such that there was even overlap. 4 tacking sutures were placed (2 on the right and 2 on the left to maintain mesh orientation using 3-0 Vicryl interrupted sutures. A second, larger, ProGrip mesh measuring 12 x 14 cm was then placed in the peritoneal cavity and pressed into place beneath the epigastric hernia closure. This too was tacked into place using interrupted 3-0 Vicryl suture. A soft count for the case was completed and then the peritoneal flap was closed in a running fashion using a 3-0 V lock suture. A second 3-0 V-Loc suture was used to close the rent in the flap that had been created from the herniated omental contents. With this closure there were no further openings in the peritoneum visible. I removed my sutures, an inserted Ray-Whitney, and a ruler from the peritoneal cavity. Now that the peritoneal cavity was cleared I could reinspect the omentum that had been taken from the hernia defect. It appeared slightly ischemic and remained perfused by a single vessel. Out of concern for its future viability I elected to coagulate the remaining vessel and amputated this small segment from the main omental mass. This portion of the omentum was placed in an Endo Catch bag and delivered from the peritoneum under laparoscopic visualization. Upon delivery from the peritoneal cavity the port site was stretched and resulted in some local oozing from the muscle. Because I was concerned that the port site had been upsized by this extraction and also wanted to ensure hemostasis so I chose to close this port under laparoscopic visualization with a #1 PDS and Filemon Delarosa suture passer in a [id number] fashion. Upon pulling up on the suture we had hemostasis and port closure. The sutures were tied down. The robot was then undocked and the trocars were removed. Additional 10 mL local anesthetic was instilled and the port sites were closed with interrupted 4-0 Monocryl in subcuticular fashion. Steri-Strips and OpSite dressings were applied. Patient was transferred to PACU for ongoing care. Surgical Findings: ? Large epigastric hernia measuring 3 cm in greatest diameter containing a large amount of omentum ? Small fat-containing umbilical hernia measuring 1.5 cm in greatest diameter ? Small segment of omentum only perfused by a single vessel with concern for future viability Complications Complications: No Admit VTE Documentation VTE Mechan Device Prophylaxis: SCD's
--- NOTE | 2025-03-05 17:01 | PCM.POST.ANE ---
Anesthesia: Postop Eval I Current Vital Signs Temperature: 97.1 F Pulse Rate: 76 Blood Pressure: 159/106 Respiratory Rate: 16 Pulse Ox: 100 Oxygen Delivery Method: Non-Rebreather Oxygen Flow Rate (L/min): 8 Assessment Airway patent: Yes Spontaneous unlabored respirations: Yes Mental status: Asleep nausea: No Vomiting: No Anesthesia Complication: No Fluid Hydration Crystalloid volume administer (ml): 1,500 Colloids volume administered (ml): 0 Blood Product volume administered (ml): 20 Total IV fluid infused: 1,520 Progress Note Anesthesia document: Postop Eval 1 completed: Yes
--- NOTE | 2025-03-05 17:09 | POSTOPAN2_ITS ---
Anesthesia Postop Eval I Sum Postop Eval Completion status Anesthesia document: Postop Eval 1 completed: Yes Anesthesia Postop Eval I Summary Anesthesia Postop Eval I Summary: Anesthesia Postop Eval I: Assessment Summary Airway patent Yes 03/05/25 17:03 JOURNAL BOX INSPECTOR.SHOF Spontaneous unlabored Yes 03/05/25 17:03 JOURNAL BOX INSPECTOR.SHOF respirations Mental status Asleep 03/05/25 17:03 JOURNAL BOX INSPECTOR.SHOF nausea No 03/05/25 17:03 JOURNAL BOX INSPECTOR.SHOF Vomiting No 03/05/25 17:03 JOURNAL BOX INSPECTOR.SHOF Anesthesia Postop Eval I: Fluid Summary Crystalloid volume administer 1,500 03/05/25 17:03 JOURNAL BOX INSPECTOR.SHOF (ml) Colloids volume administered ( 0 03/05/25 17:03 JOURNAL BOX INSPECTOR.SHOF ml) Blood Product volume 20 03/05/25 17:03 JOURNAL BOX INSPECTOR.SHOF administered (ml) Total IV fluid infused 1,520 03/05/25 17:03 JOURNAL BOX INSPECTOR.SHOF Anesthesia Postop Eval I: Summary Notes Anesthesia Complication No 03/05/25 17:03 JOURNAL BOX INSPECTOR.SHOF Anesthesia Complication Comment: Post-operative progress note Anesthesia: Postop Eval II Evaluation Mental status: Awake Pain Level: 0 nausea: No Vomiting: No Complications Anesthesia Complication: No
--- NOTE | 2025-03-05 17:09 | PCM.POSTANE2 ---
Anesthesia Postop Eval I Sum Postop Eval Completion status Anesthesia document: Postop Eval 1 completed: Yes Anesthesia Postop Eval I Summary Anesthesia Postop Eval I Summary: Anesthesia Postop Eval I: Assessment Summary Airway patent Yes 03/05/25 17:03 EMAIL ADMINISTRATOR.SHOF Spontaneous unlabored Yes 03/05/25 17:03 EMAIL ADMINISTRATOR.SHOF respirations Mental status Asleep 03/05/25 17:03 EMAIL ADMINISTRATOR.SHOF nausea No 03/05/25 17:03 EMAIL ADMINISTRATOR.SHOF Vomiting No 03/05/25 17:03 EMAIL ADMINISTRATOR.SHOF Anesthesia Postop Eval I: Fluid Summary Crystalloid volume administer 1,500 03/05/25 17:03 EMAIL ADMINISTRATOR.SHOF (ml) Colloids volume administered ( 0 03/05/25 17:03 EMAIL ADMINISTRATOR.SHOF ml) Blood Product volume 20 03/05/25 17:03 EMAIL ADMINISTRATOR.SHOF administered (ml) Total IV fluid infused 1,520 03/05/25 17:03 EMAIL ADMINISTRATOR.SHOF Anesthesia Postop Eval I: Summary Notes Anesthesia Complication No 03/05/25 17:03 EMAIL ADMINISTRATOR.SHOF Anesthesia Complication Comment: Post-operative progress note Anesthesia: Postop Eval II Evaluation Mental status: Awake Pain Level: 0 nausea: No Vomiting: No Complications Anesthesia Complication: No
[2025-03-05] MEDS: Acetaminophen 500 MG Tablet 1000 MG PO (18:00)
[2025-03-05] MEDS: oxyCODONE 5 MG Tablet PO (18:01)
== END 2025-03-05 19:05 | disposition home or self-care (01) ==
LOC: SDC 09:48 → AC 09:49
PROVIDERS: Referring Provider Surgery; Visit Provider Surgery
PROC: (CPT 49592; principal; 2025-03-05 11:00)
DX: K43.6 Other and unspecified ventral hernia with obstruction, without gangrene (principal); E11.9 Type 2 diabetes mellitus without complications; K42.0 Umbilical hernia with obstruction, without gangrene; I10 Essential (primary) hypertension; Z87.891 Personal history of nicotine dependence; Z79.899 Other long term (current) drug therapy
CPT/HCPCS: 49592; S2900; 00750; 82962; 88305; 93005; C1781; J0666; J2405